=== PATIENT | male | born 1965 | race Native Hawaiian/Other Pacific Islander ===

== ENCOUNTER 2019-06-23 17:13 | Emergency (ER) | payer OTHER ==
[~2019-06-23] VITALS: Ht 152.4 cm; Wt 63.5 kg
[~2019-06-23 17:13] MED LIST: ALTARUSSIN100 MG/5 M PEG; ALTARUSSIN100 MG/5 M PO; ASCO500T18 PEG; ATIVAN2 MG PEG; BENADRYL 50M50 MG/ML IJ; BENZTROPINE0.5 MG PO; BISA10SU8 RE; BUSP15TAB2 PO; BUSP5TAB2 PO; BUSPIRONE10 MG PEG; CARB100S2 PEG; CLON0.5T36 PEG; DAILY VIT PEG; DEXTLIQ63 PEG; DIPH50IN IM; EMOLOIN EX; ENSURE PO; FERROUS SU220 MG/5 M PO; FLEET ENEMA RE; FLUOXETINE20 MG PO; FLUOXETINE20 MG/5 ML PEG; FLUT0.05 NAS; FLUTICASONE0.05 % INH; H2O PEG; HALO5INJ3 IM; HALO5TAB10 PO; HALOPERIDOL2 MG PO; IBUPROFEN IB200 MG PO; IMODIUM A-D PEG; IMODIUM A-D PO; LEVO0.1519 PEG; LEVO0.1519 PO; LOPE2CAP17 PEG; LOPE2CAP17 PO; LORA1TAB17 PO; LORA2INJ21 IM; LORA2INJ21 INJ; METAMUCIL0.52 GM PEG; MICRO-K10 MEQ PEG; MOTRIN JR ST100 MG PO; MULTI VITAMIN A1 TAB PO; MUPI2OIN2 TOP; NORMAL SALINE F0.9 % TOP; OMEP40CA PO; PANT40TA PEG; PEPCID20 MG PEG; POTASSIUM CL 10% PO; PROVERA10 MG PEG; PROVERA10 MG PO; PSYL0.52C PEG; RANI75SY3 PO; RISP2TAB2 PO; SEROQUEL100 MG PO; SEROQUEL300 MG PEG; SEROQUEL300 MG PO; STOOL SOFTNR100 M1 PEG; TEGRETOL200 MG PO; TRILEPTAL300 MG PO; VALPROIC A250 MG/5 M PEG; VALPROIC A250 MG/5 M PO; VIMPAT10 MG/ML PEG; VIMPAT200 M1 PO; WATESOL21 IR; ZINC SULFATE220 M1 PEG; ZIPR20IN IM; ZYPREXA ZYDI10 MG PEG; [UNRECOGNIZED DRUG - OTHER] PO
[2019-06-23 17:52] LABS: PLATELET COUNT 227 K/uL (142-355)
[2019-06-23 17:58] LABS: POTASSIUM 4.2 mmol/L (3.6-5.2)
[2019-06-23 18:40] VITALS: BP 141/69; TEMP 97.5
[2019-06-24] MEDS ORDERED: [UNRECOGNIZED DRUG - OTHER] PO (00:05)
[2019-06-24] MEDS ORDERED: ZOHYDRO ER10 M1 PO (00:18)
[2019-06-24] MEDS ORDERED: SERT50TA PO (00:26)
[2019-06-24] MEDS ORDERED: FLUOXETINE40 MG PO (00:32)
[2019-06-24] MEDS ORDERED: OLANZAPINE PO (00:39)
[2019-06-24] MEDS ORDERED: PHENYTOIN EX100 MG PO ×2 (00:42→11:45)
[2019-06-24] MEDS ORDERED: THIA100T8 PO (00:44)
[2019-06-24] MEDS ORDERED: [UNRECOGNIZED DRUG - CODE] PO (00:51)
[2019-06-24] MEDS ORDERED: DIVA500T2 PO (00:58)
[2019-06-24] MEDS ORDERED: DOCU100C10 PO (00:59)
[2019-06-24] MEDS ORDERED: ENOX40IN SC (01:00)
[2019-06-24] MEDS ORDERED: BENADRYL 50M50 MG/ML IM (01:04)
[2019-06-24] MEDS ORDERED: HALO5INJ3 IM (01:06)
[2019-06-24] MEDS ORDERED: PHEN50CH2 PO (01:10)
[2019-06-24] MEDS ORDERED: PROZAC10 MG PO (01:13)
[2019-06-24] MEDS ORDERED: EQL ASPIRIN325 M1 PO (01:16)
[2019-06-24] MEDS ORDERED: VITAMIN D22000 UNIT PO (01:18)
[2019-06-24] MEDS ORDERED: DIVA250T2 PO (11:41)
[2019-06-24] MEDS ORDERED: OLANZAPINE15 MG PO (11:43)
[2019-06-24] MEDS ORDERED: TEGRETOL200 MG PO (11:46)
[2019-06-24] MEDS ORDERED: HYDR5TAB9 PO (11:48)
== END 2019-06-23 18:40 | disposition other institution (70) ==
LOC: ED 17:13
PROVIDERS: Family Medicine
DX: F91.8 Other conduct disorders (principal); G80.8 Other cerebral palsy
CPT/HCPCS: 80053; 85027; 93005; 99283; 99285

== ENCOUNTER 2021-01-18 17:31 | Emergency (ER) | payer OTHER ==
[~2021-01-18 17:31] MED LIST changes: +BENADRYL 50M50 MG/ML IM; +DIVA250T2 PO; +DIVA500T2 PO; +DOCU100C10 PO; +ENOX40IN SC; +EQL ASPIRIN325 M1 PO; +FLUOXETINE40 MG PO; +FOLI1TAB26 PO; +HYDR5TAB9 PO; +OLANZAPINE PO; +OLANZAPINE15 MG PO; +OLANZAPINE20 M1 PO; +PHEN50CH2 PO; +PHENYTOIN EX100 MG PO; +PROZAC10 MG PO; +SERT50TA PO; +THIA100T8 PO; +VITAMIN D22000 UNIT PO; +ZOHYDRO ER10 M1 PO; +[UNRECOGNIZED DRUG - CODE] PO; +[UNRECOGNIZED DRUG - OTHER] PO
[2021-01-25 15:04] LABS: PLATELET COUNT 219 K/uL (142-355)
[2021-01-25 15:05] LABS: POTASSIUM 3.8 mmol/L (3.6-5.2)
== END 2021-01-18 20:22 | disposition other institution (70) ==
LOC: ED 17:31
PROVIDERS: Family Medicine
DX: R46.89 Other symptoms and signs involving appearance and behavior (principal); Z11.52 Encounter for screening for COVID-19; Z04.6 Encounter for general psychiatric examination, requested by authority
CPT/HCPCS: 36415; 80053; 81000; 85027; 87635; 93005; 99283; U0003

== ENCOUNTER 2022-05-18 20:54 | Emergency (ER) | payer OTHER ==
[~2022-05-18] VITALS: Ht 182.9 cm; Wt 69.4 kg
[~2022-05-18 20:54] MED LIST changes: +CASA100C53 PO; +CHOL100034 PO; +DIVALPROEX500 MG PO; +FAMOTIDINE20 MG PO; +FURO20TA67 PO; +LEVE500T5 PO; +LEVO0.0723 PO; +LEVO0.1T6 PO; +OXCARBAZEPIN300 MG PO; +RISP50IN IM; +SCOP1.5D TD; +VIMPAT100 MG PO
[2022-05-18 20:55] VITALS: BP 161/76; TEMP 98
[2022-05-18 21:28] LABS: PLATELET COUNT 293 K/uL (142-355)
[2022-05-18 21:31] LABS: POTASSIUM 3.6 mmol/L (3.6-5.2)
[2022-05-19] MEDS ORDERED: [UNRECOGNIZED DRUG - OTHER] PO (10:08)
[2022-05-19] MEDS ORDERED: LEVO-T175 MCG PO (10:19)
[2022-05-19] MEDS ORDERED: OMEPRAZOLE DR20 MG PO (10:21)
[2022-05-19] MEDS ORDERED: PAXIL10 MG PO (10:23)
[2022-05-19] MEDS ORDERED: MIRTAZAPINE7.5 MG PO (10:26)
[2022-05-19] MEDS ORDERED: CVS SENNA8.6 MG PO (10:28)
[2022-05-19] MEDS ORDERED: DIVA500T2 PO (10:31)
[2022-05-19] MEDS ORDERED: VIMPAT100 MG PO (10:33)
[2022-05-19] MEDS ORDERED: LEVE500T5 PO (10:35)
[2022-05-19] MEDS ORDERED: SCOPOLAMINE TOP (10:38)
== END 2022-05-18 22:00 | disposition still patient (30) ==
LOC: ED 20:54
PROVIDERS: Emergency Medicine
DX: F03.911 Unspecified dementia, unspecified severity, with agitation (principal); Z11.52 Encounter for screening for COVID-19; Z04.6 Encounter for general psychiatric examination, requested by authority
CPT/HCPCS: 80053; 85027; 87635; 93005; 99283; U0003

== ENCOUNTER 2023-01-16 19:32 | Emergency (ER) | payer OTHER ==
[~2023-01-16] VITALS: Ht 152.4 cm; Wt 63.5 kg
[~2023-01-16 19:32] MED LIST changes: +CALC600T4 PO; +HALO2CON2 PO; +LEVO-T175 MCG PO; +MAGNSUS68 PO; +OMEPRAZOLE DR20 MG PO; +PANTOPRAZOLE 40MG TA PO; +PAXIL10 MG PO; +REMERON 15MG TAB PO; +REMERON SOLTAB15 MG PO; +SCOP1.5D TOP; +SCOPOLAMINE TOP; +SENNA LAX8.6 MG PO; +[UNRECOGNIZED DRUG - OTHER] PO
[2023-01-16 19:37] VITALS: BP 133/56
[2023-01-16 20:13] LABS: PLATELET COUNT 242 K/uL (142-355)
[2023-01-16 20:20] LABS: POTASSIUM 4.3 mmol/L (3.6-5.2)
[2023-01-17] MEDS ORDERED: PROVERA10 MG PO (07:13)
[2023-01-17] MEDS ORDERED: ZOLOFT25 MG PO (07:15)
[2023-01-17] MEDS ORDERED: PHENYTOIN EX100 MG PO (07:17)
[2023-01-17] MEDS ORDERED: PANTOPRAZOLE 40MG TA PO (07:18)
[2023-01-17] MEDS ORDERED: VALP250S3 PO (07:21)
[2023-01-17] MEDS ORDERED: HALO5TAB10 PO (07:22)
[2023-01-17] MEDS ORDERED: MILK OF MA400 MG/5 M PO (07:23)
[2023-01-17] MEDS ORDERED: VITAMIN D1000 UNI1 PO (07:24)
[2023-01-17] MEDS ORDERED: ASCORBIC ACD500 MG PO (07:28)
[2023-01-17] MEDS ORDERED: [UNRECOGNIZED DRUG - CODE] PO (07:29)
== END 2023-01-16 21:55 | disposition other institution (70) ==
LOC: ED 19:32
PROVIDERS: Family Medicine
DX: F29 Unspecified psychosis not due to a substance or known physiological condition (principal); Z02.79 Encounter for issue of other medical certificate
CPT/HCPCS: 80053; 85027; 87635; 93005; 99283; U0003